=== PATIENT | male | born 1960 | race Caucasian/White ===

== ENCOUNTER 2017-10-02 15:39 | Emergency (ER) | payer BC ==
[~2017-10-02] VITALS: Ht 162.5 cm; Wt 38.1 kg
[~2017-10-02 15:39] MED LIST: AMOXIL500 M1 PO; ASPIRIN81 M1 PO; FLONASE 0.05% 121 EA NAS; LEVOTHYROXIN0.075 MG PO; LEXAPRO20 MG PO; LORAZEPAM1 MG PO; MOTRIN800 MG PO; SIMVASTATIN40 MG PO; TRIAMTERENE/HCT1 CAP PO
[2017-10-02 16:15] LABS: HEMATOCRIT 25.4 % (42.0-52.0); MEAN CELL VOLUME 69.6 fl (80.0-94.0); MEAN CORPUSCULAR HGB 21.9 pg (27.0-31.0); MEAN CORPUSCULAR HGB CONC 31.5 g/dl (33.0-37.0); MEAN PLATELET VOLUME 8.5 fl (9.6-12.3); NUCLEATED RED BLOOD CELL 0.1 10*3/uL (0.0-0.0); NUCLEATED RED BLOOD CELL 0.4 % (0.0-0.0); RED BLOOD COUNT 3.65 10*6/uL (4.50-5.90); RED CELL DISTRI WIDTH 19.4 % (0-14.5); WHITE BLOOD COUNT 18.9 10*3/uL (4.8-10.8)
[2017-10-02 16:21] LABS: PLATELET COUNT AUTOMATED 1164 10*3/uL (130-400)
[2017-10-02 16:22] LABS: ACT PARTIAL THROMBO TIME 36.3 SECONDS (20.8-31.5); INTERNATIONAL NORM RATIO 1.2 (2.0-3.5)
[2017-10-02 16:33] LABS: ALBUMIN 2.4 gm/dl (3.1-4.5); ALKALINE PHOSPHATASE 275 U/L (45-117); BUN 6 mg/dl (7-24); CHLORIDE 92 mmol/L (98-107); CREATININE 0.51 mg/dL (0.70-1.30); POTASSIUM 3.4 mmol/L (3.5-5.1); SGOT/AST 14 IU/L (3-35); SGPT/ALT 16 U/L (12-78); SODIUM 131 mmol/L (136-145); TOTAL PROTEIN 6.5 gm/dL (6.4-8.2)
[2017-10-02 16:36] LABS: TOTAL CELLS COUNTED 100 #CELLS
[2017-10-02 16:37] LABS: PLATELET SUFFICIENCY HIGH (NORMAL)
[2017-10-02 16:38] LABS: MICROCYTOSIS SLIGHT; POLYCHROMASIA SLIGHT; TARGET CELLS MODERATE; TROPONIN I < 0.015 ng/ml (<0.045)
[2017-10-02 16:39] LABS: ACANTHOCYTES FEW; SPHEROCYTES FEW
== END 2017-10-02 20:31 | disposition short-term general hospital (02) ==
LOC: ED 15:39
PROVIDERS: Emergency Medicine
DX: J18.1 Lobar pneumonia, unspecified organism (principal); D64.9 Anemia, unspecified; D47.3 Essential (hemorrhagic) thrombocythemia; F17.200 Nicotine dependence, unspecified, uncomplicated; J44.9 Chronic obstructive pulmonary disease, unspecified; Z79.899 Other long term (current) drug therapy; Z79.82 Long term (current) use of aspirin